=== PATIENT | male | born 1990 | race Caucasian/White ===

== ENCOUNTER 2020-03-18 10:05 | Emergency (ER) | payer OTHER ==
[~2020-03-18] VITALS: Ht 175.3 cm; Wt 86.4 kg
[2020-03-18 10:05] VITALS: BP 126/71
--- NOTE | 2020-03-18 10:54 | REPVR ---
PROCEDURE INFORMATION: Exam: XR Left Hand Exam date and time: 03/18/2020 10:21 AM Age: 29 years old Clinical indication: Pain; Finger(s); Left; Additional info: Injury during sports, left thumb pain TECHNIQUE: Imaging protocol: XR Left hand. Views: 3 or more views. COMPARISON: No relevant prior studies available. FINDINGS: Bones/joints: Subtle nondisplaced fracture involving the proximal metaphysis of the base of the thumb distal phalanx. Bones are otherwise intact. No dislocation. Soft tissues: Soft tissues are unremarkable. IMPRESSION: Nondisplaced fracture involving the proximal metaphysis of the base of the thumb distal phalanx. Electronically signed by: Alli Youssef On 03/18/2020 10:54:20 AM
== END 2020-03-18 11:51 | disposition home or self-care (01) ==
LOC: M ED 10:05
DX: S62.525A Nondisplaced fracture of distal phalanx of left thumb, initial encounter for closed fracture (principal); W23.0XXA Caught, crushed, jammed, or pinched between moving objects, initial encounter; Y92.099 Unspecified place in other non-institutional residence as the place of occurrence of the external cause; Y93.67 Activity, basketball; Y99.9 Unspecified external cause status